=== PATIENT | female | born 1980 | race Caucasian/White ===

== ENCOUNTER 2018-02-26 10:15 | Emergency (ER) | payer SELFPAY | END 2018-02-26 12:55 | disposition home or self-care (01) | LOC: ER 10:15 | DX: M54.6 Pain in thoracic spine (principal); B37.2 Candidiasis of skin and nail; G89.29 Other chronic pain; F17.200 Nicotine dependence, unspecified, uncomplicated; Z88.8 Allergy status to other drugs, medicaments and biological substances | CPT/HCPCS: 72072; 72100; 99284 ==

== ENCOUNTER 2018-04-08 16:58 | Emergency (ER) | payer SELFPAY ==
[2018-04-08] MEDS: oxyCODONE/APAP 10/325 1 TAB TABLET PO (17:41)
[2018-04-08 18:00] LABS: NEG OBC SER NEG; POS OBC SER POS; PREG TEST PT QUAL NEGATIVE (NEG)
== END 2018-04-08 19:00 | disposition home or self-care (01) ==
LOC: ER 16:58
DX: S33.5XXA Sprain of ligaments of lumbar spine, initial encounter (principal); N83.02 Follicular cyst of left ovary; G89.29 Other chronic pain; Z88.8 Allergy status to other drugs, medicaments and biological substances; Y93.89 Activity, other specified; W10.9XXA Fall (on) (from) unspecified stairs and steps, initial encounter; Y92.89 Other specified places as the place of occurrence of the external cause; Y99.8 Other external cause status
CPT/HCPCS: 71045; 72131; 84703; 99285-25

== ENCOUNTER 2018-04-21 21:16 | Emergency (ER) | payer SELFPAY ==
[2018-04-21] MEDS: DIPHTH,PERTUSS(ACELL),TET TOX 0.5 ML DISP.SYRIN. VAX IM (22:02)
[2018-04-21] MEDS: HYDROcodone/APAP 5/325MG 1 TAB TABLET PO (22:03)
== END 2018-04-21 22:04 | disposition home or self-care (01) ==
LOC: ER 22:04
DX: N61.1 Abscess of the breast and nipple (principal); G89.29 Other chronic pain; Z88.5 Allergy status to narcotic agent; Z88.8 Allergy status to other drugs, medicaments and biological substances
CPT/HCPCS: 90471; 90715; 99283-25